=== PATIENT | male | born 1975 | race Hispanic/Latino ===

== ENCOUNTER 2019-01-30 12:15 | Emergency (ER) | payer MEDICAID, OTHER ==
[2019-01-30] MEDS ORDERED: FAMOTIDINE/PF 20 MG/2 ML VIAL IV ONE (12:40)
[2019-01-30] MEDS ORDERED: ONDANSETRON HCL 4 MG/2 ML VIAL ONE (12:40)
[2019-01-30 12:50] LABS: POTASSIUM 3.6 mmol/L (3.5-5.1)
[2019-01-30 12:53] LABS: BASOPHILS % (AUTO) 1.1 % (0.0-5.0); EOSINOPHILS % (AUTO) 1.3 % (0.0-8.0); HEMATOCRIT 49.1 % (42-54); LYMPHOCYTES % (AUTO) 17.2 % (21.0-51.0); MEAN CORPUSCULAR HEMOGLOBIN 29.5 pg (27.0-33.0); MEAN CORPUSCULAR HGB CONC 33.7 g/dL (32.0-36.0); MEAN CORPUSCULAR VOLUME 87.3 fL (79-99); MONOCYTES % (AUTO) 7.1 % (3.0-13.0); NEUTROPHILS % (AUTO) 73.3 % (40.0-77.0); PLATELET COUNT (AUTO) 291 K/uL (130-400); RED BLOOD CELL COUNT(AUTO) 5.62 MIL/uL (4.50-6.20); WHITE BLOOD COUNT (AUTO) 9.9 K/uL (4.8-10.8)
[2019-01-30 12:55] LABS: ALBUMIN 4.3 g/dL (3.5-5.0)
[2019-01-30 13:55] LABS: APPEARANCE,URINE Clear (CLEAR); BILIRUBIN,URINE Negative (NEGATIVE); COLOR,URINE Dark Yellow (YELLOW); GLUCOSE, URINE (UA) Negative (NEGATIVE); KETONES,URINE >=80 mg/dL (NEGATIVE); LEUKOCYTE ESTERASE ,URINE Trace (NEGATIVE); NITRATE,URINE Negative (NEGATIVE); OCCULT BLOOD,URINE Negative (NEGATIVE); PH,URINE >=9.0 (5.0-8.0); PROTEIN,URINE POS 2+ mg/dL (NEGATIVE)
[2019-01-30 14:04] LABS: AMPHET/METH SCREEN,URINE NEGATIVE (NEGATIVE); BARBITURATE SCREEN, URINE NEGATIVE (NEGATIVE); BENZODIAZEPINES SCREEN,URINE NEGATIVE (NEGATIVE); CANNABINOID SCREEN,URINE NEGATIVE (NEGATIVE); COCAINE SCREEN,URINE NEGATIVE (NEGATIVE); OPIATE SCREEN,URINE NEGATIVE (NEGATIVE); PHENCYCLIDINE SCREEN,URINE NEGATIVE (NEGATIVE)
[2019-01-30 14:09] LABS: BACTERIA,URINE Rare /HPF (None Seen); MUCUS,URINE Many LPF (None Seen); RBC,URINE None Seen /HPF (0-1); WBC,URINE 0-1 /HPF (0-1)
== END 2019-01-30 14:19 | disposition home or self-care (01) ==
LOC: EDH 12:15
DX: K29.70 Gastritis, unspecified, without bleeding (principal); K21.9 Gastro-esophageal reflux disease without esophagitis
CPT/HCPCS: 36415; 80053; 80305; 81001; 83690; 85025; 96361; 96374; 96375; 99284; J2405; J3490

== ENCOUNTER 2019-02-25 09:55 | Emergency (ER) | payer OTHER ==
[2019-02-25] MEDS ORDERED: SODIUM CHLORIDE 0.9% 1000ML 1,000 ML IV ONE (10:31)
[2019-02-25] MEDS ORDERED: ONDANSETRON HCL 4 MG/2 ML VIAL ONE ×2 (10:33→10:40)
[2019-02-25 10:40] LABS: BASOPHILS % (AUTO) 0.8 % (0.0-5.0); EOSINOPHILS % (AUTO) 2.6 % (0.0-8.0); HEMATOCRIT 38.4 % (42-54); LYMPHOCYTES % (AUTO) 6.6 % (21.0-51.0); MEAN CORPUSCULAR HEMOGLOBIN 28.9 pg (27.0-33.0); MEAN CORPUSCULAR HGB CONC 33.5 g/dL (32.0-36.0); MEAN CORPUSCULAR VOLUME 86.1 fL (79-99); MONOCYTES % (AUTO) 6.8 % (3.0-13.0); NEUTROPHILS % (AUTO) 83.2 % (40.0-77.0); PLATELET COUNT (AUTO) 311 K/uL (130-400); RED BLOOD CELL COUNT(AUTO) 4.45 MIL/uL (4.50-6.20); RED CELL DISTRIBUTION WIDTH 12.6 % (11.0-15.5); WHITE BLOOD COUNT (AUTO) 9.5 K/uL (4.8-10.8)
[2019-02-25] MEDS ORDERED: KETOROLAC TROMETHAMINE 30MG/ML ONE (10:41)
[2019-02-25 10:50] LABS: APPEARANCE,URINE Clear (CLEAR); BILIRUBIN,URINE Small (NEGATIVE); COLOR,URINE Dark Yellow (YELLOW); GLUCOSE, URINE (UA) Negative (NEGATIVE); KETONES,URINE Trace mg/dL (NEGATIVE); LEUKOCYTE ESTERASE ,URINE Trace (NEGATIVE); NITRATE,URINE Negative (NEGATIVE); OCCULT BLOOD,URINE Negative (NEGATIVE); PROTEIN,URINE Trace mg/dL (NEGATIVE)
[2019-02-25 10:51] LABS: CREATININE 0.9 mg/dL (0.5-1.5); POTASSIUM 3.9 mmol/L (3.5-5.1)
[2019-02-25 10:56] LABS: BILIRUBIN,DIRECT 0.2 mg/dL (0.0-0.3); BILIRUBIN,TOTAL 0.8 mg/dL (0.2-1.0); TOTAL PROTEIN, SERUM 7.3 g/dL (6.0-8.3)
[2019-02-25 10:58] LABS: AMPHET/METH SCREEN,URINE NEGATIVE (NEGATIVE); BARBITURATE SCREEN, URINE NEGATIVE (NEGATIVE); BENZODIAZEPINES SCREEN,URINE NEGATIVE (NEGATIVE); CANNABINOID SCREEN,URINE NEGATIVE (NEGATIVE); COCAINE SCREEN,URINE NEGATIVE (NEGATIVE); OPIATE SCREEN,URINE POSITIVE (NEGATIVE); PHENCYCLIDINE SCREEN,URINE NEGATIVE (NEGATIVE)
[2019-02-25 11:13] LABS: BACTERIA,URINE Rare /HPF (None Seen); MUCUS,URINE Rare LPF (None Seen); RBC,URINE 0-1 /HPF (0-1); SQUAMOUS EPITHELIAL CELL,UR Rare /HPF (0-2); WBC,URINE 0-1 /HPF (0-1)
[2019-02-25 11:51] LABS: B-TYPE NATRIURETIC PEPTIDE 24 pg/mL (0-100)
== END 2019-02-25 14:05 | disposition home or self-care (01) ==
LOC: EDH 09:55
DX: E86.0 Dehydration (principal); R53.1 Weakness; Z85.00 Personal history of malignant neoplasm of unspecified digestive organ; Z90.49 Acquired absence of other specified parts of digestive tract
CPT/HCPCS: 36415; 80048; 80076; 80305; 81001; 82550; 83690; 83880; 85025; 93005; 96361; 96374; 99285; J1885; J2405 ×2; J7030

== ENCOUNTER 2019-03-14 05:40 | Day surgery (SDC) | payer OTHER ==
[2019-03-12 15:30] VITALS: BP 116/70
[2019-03-12 15:47] LABS: EOSINOPHILS % (AUTO) 6.1 % (0.0-8.0); HEMATOCRIT 41.7 % (42-54); LYMPHOCYTES % (AUTO) 17.4 % (21.0-51.0); MEAN CORPUSCULAR HEMOGLOBIN 28.9 pg (27.0-33.0); MEAN CORPUSCULAR HGB CONC 33.3 g/dL (32.0-36.0); MEAN CORPUSCULAR VOLUME 86.8 fL (79-99); NEUTROPHILS % (AUTO) 68.5 % (40.0-77.0); PLATELET COUNT (AUTO) 322 K/uL (130-400); WHITE BLOOD COUNT (AUTO) 9.7 K/uL (4.8-10.8)
[~2019-03-14] VITALS: Ht 170.2 cm; Wt 79.0 kg
[2019-03-14] VITALS (14 sets, daily range): BP systolic 109–128; BP diastolic 67–78
[~2019-03-14 05:40] MED LIST: LACTATED RINGERS 1000ML 1,000 ML IV ONE
[2019-03-14] MEDS: CEFAZOLIN SODIUM 1 GM VIAL IVP SCH ×2 (06:00→06:33)
[2019-03-14] MEDS ORDERED: PROPOFOL 10 MG/ML 20ML VIAL IV ONE (06:12)
[2019-03-14] MEDS ORDERED: LIDOCAINE PF 2% 5ML ABBOJECT ONE (06:12)
[2019-03-14] MEDS ORDERED: MIDAZOLAM HCL 1 MG/ML 2ML VIAL ONE (06:12)
[2019-03-14] MEDS ORDERED: FENTANYL CITRATE PF 50 MCG/1 ML 2ML VIAL ONE (06:13)
[2019-03-14] MEDS ORDERED: BUPIVACAINE/PF 0.25% 30ML VIAL IJ ONE (06:21)
[2019-03-14] MEDS ORDERED: KETOROLAC TROMETHAMINE 30MG/ML ONE (06:51)
[2019-03-14] MEDS ORDERED: EPHEDRINE SULFATE 50 MG/ML AMPULE ONE (06:53)
--- NOTE | 2019-03-14 08:03 | NUR ---
RECEIVE PT RECEIVED FROM PACU VIA STRETCHER AWAKE ALERT ORIENTED X3. PT STABLE. NOT IN ANY APPARENT DISTRESS. PORT A CATH SITE SOFT, NO SWELLING NO REDNESS NOTED, DRESSING DRY AND INTACT, NO OOZING NO HEMATOMA NOTE. KEPT HOB ELEVATED. WAITING ON CXR RESULTS. CALL [facility] WITHIN REACH, WILL CALL FOR TO COME IN TO ROOM.
--- NOTE | 2019-03-14 08:55 | NUR ---
DISCHARGE PT DISCHARGED VIA WHEELCHAIR WITH . PT STABLE. NO COMPLAINTS MADE. PORT INCISION SITE TO LEFT CHEST REMAINS ASYMPTOMATIC, NO SWELLING NO REDNESS NOTED, DRESSING DRY AND INTACT, NO OOZING NO HEMATOMA NOTED. DISCHARGE INSTRUCTIONS GIVEN TO AND PT, VERBALIZED UNDERSTANDING. OFFERED ORAL FLUIDS (WATER), PT HESITANT WITH THE KIND OF WATER FILTRATION, WILL DRINK AT HOME.
== END 2019-03-14 08:55 | disposition home or self-care (01) ==
LOC: DAH 05:40
PROVIDERS: ATTEND Surgery
DX: Z45.2 Encounter for adjustment and management of vascular access device (principal); C78.89 Secondary malignant neoplasm of other digestive organs; C80.1 Malignant (primary) neoplasm, unspecified; I25.10 Atherosclerotic heart disease of native coronary artery without angina pectoris; Z90.3 Acquired absence of stomach [part of]; Z87.891 Personal history of nicotine dependence; Z83.3 Family history of diabetes mellitus; Z80.3 Family history of malignant neoplasm of breast; Z80.0 Family history of malignant neoplasm of digestive organs; K86.81 Exocrine pancreatic insufficiency
CPT/HCPCS: 36415; 36561; 71045; 77001; 85025; A4606; A4930; A6206; C1788; G0168; J0690; J1644; J1885; J2001; J2250; J2704; J3010; J3490 ×2; J7120; 77002

== ENCOUNTER 2019-08-31 15:27 | Inpatient (IN) | payer OTHER ==
[~2019-08-31] VITALS: Ht 170.2 cm; Wt 84.1 kg
[2019-08-31] MEDS ORDERED: ONDANSETRON HCL 4 MG/2 ML VIAL ONE (16:05)
[2019-08-31 16:27] LABS: BASOPHILS % (AUTO) 0.7 % (0.0-5.0); EOSINOPHILS % (AUTO) 4.4 % (0.0-8.0); HEMATOCRIT 41.8 % (42-54); LYMPHOCYTES % (AUTO) 15.5 % (21.0-51.0); MEAN CORPUSCULAR VOLUME 88.3 fL (79-99); MONOCYTES % (AUTO) 8.3 % (3.0-13.0); NEUTROPHILS % (AUTO) 71.1 % (40.0-77.0); PLATELET COUNT (AUTO) 273 K/uL (130-400); RED BLOOD CELL COUNT(AUTO) 4.74 MIL/uL (4.50-6.20); RED CELL DISTRIBUTION WIDTH 12.1 % (11.0-15.5); WHITE BLOOD COUNT (AUTO) 6.5 K/uL (4.8-10.8)
[2019-08-31 16:45] LABS: INR 0.99 (0.85-1.15); PARTIAL THROMBOPLASTIN TIME 30.5 SEC (26.3-35.5); PROTHROMBIN TIME 10.4 SEC (9.6-11.6)
[2019-08-31 16:47] LABS: CREATININE 0.8 mg/dL (0.5-1.5); POTASSIUM 3.5 mmol/L (3.5-5.1)
[2019-08-31 16:53] LABS: ALBUMIN 3.9 g/dL (3.5-5.0); BILIRUBIN,TOTAL 0.6 mg/dL (0.2-1.0); TOTAL PROTEIN, SERUM 7.4 g/dL (6.0-8.3)
[2019-08-31] MEDS ORDERED: KETOROLAC TROMETHAMINE 30MG/ML ONE (17:04)
[2019-08-31] MEDS ORDERED: MAGNESIUM CITRATE 296 ML SOLUTION ONE (17:43)
[2019-08-31] MEDS ORDERED: ZOSYN 3.375GM+NS 50ML 50 ML IV ONE (17:43)
[2019-08-31 17:51] LABS: APPEARANCE,URINE Clear (CLEAR); BILIRUBIN,URINE Negative (NEGATIVE); COLOR,URINE Yellow (YELLOW); GLUCOSE, URINE (UA) Negative (NEGATIVE); KETONES,URINE 40 mg/dL (NEGATIVE); LEUKOCYTE ESTERASE ,URINE Negative (NEGATIVE); NITRATE,URINE Negative (NEGATIVE); OCCULT BLOOD,URINE Negative (NEGATIVE); PH,URINE 7.5 (5.0-8.0); PROTEIN,URINE Negative (NEGATIVE)
[2019-08-31] MEDS: SODIUM CHLORIDE 0.9% 1000ML 1,000 ML IV SCH (18:29)
[2019-08-31] MEDS ORDERED: LACTULOSE 20 GM/30 ML UDCUP PO PRN (18:30)
[2019-08-31] MEDS ORDERED: ACETAMINOPHEN 325 MG TAB PO PRN ×2 (18:30)
[2019-08-31] MEDS ORDERED: ONDANSETRON HCL 4 MG/2 ML VIAL IV PRN (18:30)
[2019-08-31] MEDS ORDERED: SODIUM CHLORIDE 0.9% 1000ML 1,000 ML IV ONE (19:50)
[2019-08-31] MEDS ORDERED: KETOROLAC TROMETHAMINE 15MG/ML ONE (20:07)
[2019-08-31] MEDS ORDERED: FAMOTIDINE/PF 20 MG/2 ML VIAL IV ONE (20:07)
[2019-08-31] MEDS: FAMOTIDINE/PF 20 MG/2 ML VIAL IV SCH (21:00)
[2019-08-31] MEDS: ZOSYN 3.375GM+NS 50ML 50 ML IV SCH (21:00)
[2019-08-31 21:20] VITALS: BP 155/98
--- NOTE | 2019-08-31 21:30 | NUR ---
ADMIT PT ADMITTED TO ROOM 313, AAOX3. DENIES ANY PAINS NOR ABDOMINAL DISCOMFORT AT THIS TIME. STILL NO BM BUT + BOWEL SOUNDS AND PASSAGE OF GAS. ADMISSION CARE DONE. ADMISSION DATA BASE COMPLETED. ORIENTED TO ROOM AND UNIT. PLACED NPO, INSTRUCTED PT AND VERBALIZES UNDERSTANDING. IN FOR MORE CARE AND MANAGEMENT. Addendum: 08/31/19 at 2236 by JERAD ALFONSO RN RN Amended: Links added.
[2019-08-31] MEDS ORDERED: TRAM50TA4 PO (21:35)
[2019-09-01] VITALS: BP 142/63
--- NOTE | 2019-09-01 01:40 | NUR ---
ROUNDS PT RESTING WELL, FAIRLY ASLEEP WITH RESPIRATIONS EVEN AND UNLABORED. NO NOTED DISTRESS. KEPT UNDISTURBED FOR NOW. WILL MONITOR PT. FAMILY ASLEEP AT BEDSIDE.
[2019-09-01] MEDS: SODIUM CHLORIDE 0.9% 1000ML 1,000 ML IV SCH ×4 (02:07→21:39)
[2019-09-01 04:00] VITALS: BP 149/99
[2019-09-01] MEDS: ZOSYN 3.375GM+NS 50ML 50 ML IV SCH ×3 (04:08→21:39)
[2019-09-01 05:29] LABS: BASOPHILS % (AUTO) 0.6 % (0.0-5.0); EOSINOPHILS % (AUTO) 2.3 % (0.0-8.0); HEMATOCRIT 40.6 % (42-54); LYMPHOCYTES % (AUTO) 5.6 % (21.0-51.0); MEAN CORPUSCULAR HEMOGLOBIN 30.3 pg (27.0-33.0); MEAN CORPUSCULAR HGB CONC 34.3 g/dL (32.0-36.0); MEAN CORPUSCULAR VOLUME 88.5 fL (79-99); MONOCYTES % (AUTO) 9.7 % (3.0-13.0); NEUTROPHILS % (AUTO) 81.8 % (40.0-77.0); PLATELET COUNT (AUTO) 209 K/uL (130-400); RED BLOOD CELL COUNT(AUTO) 4.59 MIL/uL (4.50-6.20); RED CELL DISTRIBUTION WIDTH 12.4 % (11.0-15.5); WHITE BLOOD COUNT (AUTO) 7.1 K/uL (4.8-10.8)
[2019-09-01 05:50] LABS: CREATININE 0.9 mg/dL (0.5-1.5); POTASSIUM 3.7 mmol/L (3.5-5.1)
--- NOTE | 2019-09-01 06:00 | NUR ---
ROUNDS PT STILL FAIRLY ASLEEP. NO DISTRESS NOTED. KEPT UNDISTURBED FOR NOW. KEPT RESTED AND COMFORTABLE. FOR MORE CARE.
[2019-09-01 08:00] VITALS: BP 147/93
[2019-09-01] MEDS: FAMOTIDINE/PF 20 MG/2 ML VIAL IV SCH ×2 (08:49→21:39)
[2019-09-01] MEDS: ENOXAPARIN SODIUM 40 MG/0.4 ML SYRINGE SQ SCH (08:50)
[2019-09-01 11:00] VITALS: BP 144/91
[2019-09-01] MEDS: KETOROLAC TROMETHAMINE 15MG/ML IV PRN ×2 (11:57→21:39)
[2019-09-01 15:20] VITALS: BP 142/94
--- NOTE | 2019-09-01 17:22 | NUR ---
D/C PLAN CM spoke to pts spouse regarding d/c planning. Pt currently in shower. Spouse states pt is ind. with ADL's. Spouse can assist in care if needed. Denies having any DME at home. Plan to home. No needs verbalized or identified. CM to f/u. Addendum: 09/01/19 at 1723 by PEDRITO RHOADES CM Amended: Links added.
[2019-09-01 19:18] VITALS: BP 136/86
--- NOTE | 2019-09-01 21:59 | NUR ---
Called DR rivers pt concern that PA told him he's going to have surgery tonight.Result of RUQ sono relayed to him,he said pt can have Clear Liquid for now.No surgery indicated.
[2019-09-02] VITALS (7 sets, daily range): BP systolic 143–163; BP diastolic 80–94
[2019-09-02] MEDS: SODIUM CHLORIDE 0.9% 1000ML 1,000 ML IV SCH ×4 (02:29→21:32)
[2019-09-02] MEDS: ZOSYN 3.375GM+NS 50ML 50 ML IV SCH ×3 (04:48→21:25)
[2019-09-02] MEDS: KETOROLAC TROMETHAMINE 15MG/ML IV PRN (04:55)
[2019-09-02 05:20] LABS: BASOPHILS % (AUTO) 0.9 % (0.0-5.0); EOSINOPHILS % (AUTO) 4.3 % (0.0-8.0); HEMATOCRIT 38.2 % (42-54); LYMPHOCYTES % (AUTO) 17.7 % (21.0-51.0); MEAN CORPUSCULAR HEMOGLOBIN 29.8 pg (27.0-33.0); MEAN CORPUSCULAR HGB CONC 33.8 g/dL (32.0-36.0); MEAN CORPUSCULAR VOLUME 88.3 fL (79-99); NEUTROPHILS % (AUTO) 65.1 % (40.0-77.0); PLATELET COUNT (AUTO) 218 K/uL (130-400); RED BLOOD CELL COUNT(AUTO) 4.33 MIL/uL (4.50-6.20); RED CELL DISTRIBUTION WIDTH 12.2 % (11.0-15.5); WHITE BLOOD COUNT (AUTO) 5.4 K/uL (4.8-10.8)
[2019-09-02 05:42] LABS: ALBUMIN 3.2 g/dL (3.5-5.0); BILIRUBIN,TOTAL 0.6 mg/dL (0.2-1.0); CREATININE 0.9 mg/dL (0.5-1.5); TOTAL PROTEIN, SERUM 6.4 g/dL (6.0-8.3)
[2019-09-02] MEDS: ENOXAPARIN SODIUM 40 MG/0.4 ML SYRINGE SQ SCH (09:42)
[2019-09-02] MEDS: FAMOTIDINE/PF 20 MG/2 ML VIAL IV SCH ×2 (09:42→21:25)
--- NOTE | 2019-09-02 11:30 | NUR ---
ONCOLOGY CONSULT. CALLED DR MARCIAL'S OFFICE. THEY WERE NOT AWARE OF THE CONSULT THAT WAS ORDERED SINCE YESTERDAY. ALL INFORMATION PROVIDED.
[2019-09-03] MEDS: KETOROLAC TROMETHAMINE 15MG/ML IV PRN (03:56)
[2019-09-03 04:00] VITALS: BP 152/79
[2019-09-03] MEDS: ZOSYN 3.375GM+NS 50ML 50 ML IV SCH (04:49)
[2019-09-03 05:30] LABS: BASOPHILS % (AUTO) 0.6 % (0.0-5.0); EOSINOPHILS % (AUTO) 4.9 % (0.0-8.0); HEMATOCRIT 38.5 % (42-54); LYMPHOCYTES % (AUTO) 19.3 % (21.0-51.0); MEAN CORPUSCULAR HEMOGLOBIN 30.4 pg (27.0-33.0); MEAN CORPUSCULAR HGB CONC 34.1 g/dL (32.0-36.0); MONOCYTES % (AUTO) 9.3 % (3.0-13.0); NEUTROPHILS % (AUTO) 65.9 % (40.0-77.0); NUCLEATED RED BLOOD CELLS 0.1 % (0.0-0.19); PLATELET COUNT (AUTO) 195 K/uL (130-400); RED BLOOD CELL COUNT(AUTO) 4.33 MIL/uL (4.50-6.20); RED CELL DISTRIBUTION WIDTH 12.4 % (11.0-15.5); WHITE BLOOD COUNT (AUTO) 5.1 K/uL (4.8-10.8)
[2019-09-03 05:44] LABS: ALBUMIN 3.2 g/dL (3.5-5.0); BILIRUBIN,TOTAL 0.7 mg/dL (0.2-1.0); CREATININE 0.9 mg/dL (0.5-1.5); POTASSIUM 3.9 mmol/L (3.5-5.1); TOTAL PROTEIN, SERUM 6.5 g/dL (6.0-8.3)
[2019-09-03 08:46] VITALS: BP 141/91
[2019-09-03] MEDS: FAMOTIDINE/PF 20 MG/2 ML VIAL IV SCH (08:56)
[2019-09-03] MEDS: ENOXAPARIN SODIUM 40 MG/0.4 ML SYRINGE SQ SCH (08:57)
[2019-09-03] MEDS: SODIUM CHLORIDE 0.9% 1000ML 1,000 ML IV SCH (10:30)
[2019-09-03 12:13] VITALS: BP 135/80
== END 2019-09-03 14:15 | disposition home or self-care (01) | DRG 393 ==
LOC: EDH 15:27 → EDHIP 18:29 → 3CH 20:18
PROVIDERS: ADMIT Internal Medicine; ATTEND Internal Medicine
DX: K35.80 Unspecified acute appendicitis (principal); K85.90 Acute pancreatitis without necrosis or infection, unspecified; C16.9 Malignant neoplasm of stomach, unspecified; K59.09 Other constipation; Z80.9 Family history of malignant neoplasm, unspecified; Z83.3 Family history of diabetes mellitus; Z87.891 Personal history of nicotine dependence; Z90.3 Acquired absence of stomach [part of]
CPT/HCPCS: 36415; 71045; 74176; 76705; 80048; 80053; 81003; 82150; 82550; 83690; 84484; 85025; 85610; 85730; 93005; G0378; J1650; J1885; J2405; J2543; J3490; J7030

== ENCOUNTER → 2019-09-10 | Outpatient (CLI) | payer OTHER ==
[~2019-09-10] MED LIST changes: -LACTATED RINGERS 1000ML 1,000 ML IV ONE; +TRAM50TA4 PO
[2019-09-10 15:05] LABS: ALBUMIN 4.2 g/dL (3.5-5.0); BILIRUBIN,TOTAL 0.9 mg/dL (0.2-1.0); CREATININE 0.9 mg/dL (0.5-1.5); POTASSIUM 4.3 mmol/L (3.5-5.1); TOTAL PROTEIN, SERUM 7.8 g/dL (6.0-8.3)
== END | disposition home or self-care (01) ==
LOC: LAB 14:12
PROVIDERS: ATTEND Family Medicine
DX: C16.9 Malignant neoplasm of stomach, unspecified (principal); K85.90 Acute pancreatitis without necrosis or infection, unspecified
CPT/HCPCS: 36415; 80053; 82150; 83690

== ENCOUNTER 2019-09-18 16:20 | Inpatient (IN) | payer OTHER ==
[~2019-09-18] VITALS: Ht 170.2 cm; Wt 84.2 kg
[2019-09-18 17:02] LABS: BASOPHILS % (AUTO) 0.4 % (0.0-5.0); EOSINOPHILS % (AUTO) 5.3 % (0.0-8.0); HEMATOCRIT 42.3 % (42-54); LYMPHOCYTES % (AUTO) 12.8 % (21.0-51.0); MEAN CORPUSCULAR HEMOGLOBIN 28.3 pg (27.0-33.0); MEAN CORPUSCULAR HGB CONC 32.9 g/dL (32.0-36.0); MEAN CORPUSCULAR VOLUME 86.2 fL (79-99); MONOCYTES % (AUTO) 10.9 % (3.0-13.0); NEUTROPHILS % (AUTO) 70.4 % (40.0-77.0); PLATELET COUNT (AUTO) 186 K/uL (130-400); RED BLOOD CELL COUNT(AUTO) 4.91 MIL/uL (4.50-6.20); RED CELL DISTRIBUTION WIDTH 11.9 % (11.0-15.5); WHITE BLOOD COUNT (AUTO) 4.7 K/uL (4.8-10.8)
[2019-09-18 17:14] LABS: CREATININE 0.8 mg/dL (0.5-1.5); POTASSIUM 4.3 mmol/L (3.5-5.1)
[2019-09-18] MEDS ORDERED: MORPHINE SULFATE 4 MG/1ML SYG ONE (17:16)
[2019-09-18] MEDS ORDERED: ONDANSETRON HCL 4 MG/2 ML VIAL ONE (17:16)
[2019-09-18 17:17] LABS: MAGNESIUM 1.9 mg/dL (1.80-2.40); PHOSPHORUS 3.2 mg/dL (2.5-4.9)
[2019-09-18] MEDS ORDERED: SODIUM CHLORIDE 0.9% 1000ML 1,000 ML IV ONE (17:17)
[2019-09-18] MEDS ORDERED: IOHEXOL 350 MG/ML 100ML INFUS..BTL IV ONE (17:18)
[2019-09-18 17:20] LABS: BILIRUBIN,TOTAL 4.8 mg/dL (0.2-1.0); TOTAL PROTEIN, SERUM 7.4 g/dL (6.0-8.3)
[2019-09-18] MEDS ORDERED: ACETAMINOPHEN 325 MG TAB PO PRN (20:30)
[2019-09-18 22:55] VITALS: BP 149/75
[2019-09-18] MEDS: FAMOTIDINE/PF 20 MG/2 ML VIAL IV SCH (23:48)
[2019-09-18] MEDS: SODIUM CHLORIDE 0.9% 1000ML 1,000 ML IV SCH (23:59)
[2019-09-18] MEDS: ONDANSETRON HCL 4 MG/2 ML VIAL IV PRN (23:59)
[2019-09-19] MEDS: MORPHINE SULFATE 4 MG/1ML SYG IV PRN ×4 (00:04→19:49)
[2019-09-19 03:25] VITALS: BP 146/92
[2019-09-19 05:59] LABS: BASOPHILS % (AUTO) 0.7 % (0.0-5.0); EOSINOPHILS % (AUTO) 4.6 % (0.0-8.0); HEMATOCRIT 39.7 % (42-54); LYMPHOCYTES % (AUTO) 13.3 % (21.0-51.0); MEAN CORPUSCULAR HEMOGLOBIN 28.7 pg (27.0-33.0); MEAN CORPUSCULAR VOLUME 87.1 fL (79-99); MONOCYTES % (AUTO) 10.5 % (3.0-13.0); NEUTROPHILS % (AUTO) 70.5 % (40.0-77.0); PLATELET COUNT (AUTO) 156 K/uL (130-400); RED BLOOD CELL COUNT(AUTO) 4.56 MIL/uL (4.50-6.20); RED CELL DISTRIBUTION WIDTH 11.9 % (11.0-15.5); WHITE BLOOD COUNT (AUTO) 4.6 K/uL (4.8-10.8)
[2019-09-19 06:17] LABS: CREATININE 0.8 mg/dL (0.5-1.5); POTASSIUM 3.9 mmol/L (3.5-5.1)
[2019-09-19] MEDS: ONDANSETRON HCL 4 MG/2 ML VIAL IV PRN ×3 (06:20→20:22)
[2019-09-19] MEDS: SODIUM CHLORIDE 0.9% 1000ML 1,000 ML IV SCH (07:11)
[2019-09-19 08:00] VITALS: BP 155/91
[2019-09-19] MEDS: LACTATED RINGERS 1000ML 1,000 ML IV SCH ×2 (09:30→22:55)
[2019-09-19] MEDS ORDERED: GADODIAMIDE 10 MMOL/20 ML VIAL IV ONE (09:50)
[2019-09-19] MEDS ORDERED: LACTATED RINGERS 1000ML 1,000 ML IV ONE (10:03)
[2019-09-19] MEDS: FAMOTIDINE/PF 20 MG/2 ML VIAL IV SCH ×2 (11:59→20:22)
[2019-09-19 12:00] VITALS: BP 162/82
[2019-09-19] MEDS: ENOXAPARIN SODIUM 40 MG/0.4 ML SYRINGE SQ SCH (12:00)
[2019-09-19 16:00] VITALS: BP 153/77
--- NOTE | 2019-09-19 16:30 | NUR ---
DCP CM met with pt discussed dc plans. Pt is indpendent prior to admission, lives at home with spouse. Denies any equipments/services. Feels safe to go back home, spouse able to assist with transportation and needs as necessary. DC plan to home once stable. CM to cont to follow up. Addendum: 09/19/19 at 1631 by HEAVENLY BABCOCK LVN CM Amended: Links added.
--- NOTE | 2019-09-19 18:41 | NUR ---
I have paged dr Ayers to inform him of MRCP findings pending all back
[2019-09-19 19:20] VITALS: BP 168/92
--- NOTE | 2019-09-19 19:30 | NUR ---
MD VISIT Dr. Cardenas here to see pt for consult, pt seen and examined, concerns addressed. Talked to pt and about plan of care. MD stated that he doesn't need to do any surgery, to talk to GI about a stent placement. Also called and talked to Dr. Parks over the phone to come see the pt in the am, Oncologist added to the consult list.
[2019-09-19 23:28] VITALS: BP 168/90
[2019-09-20] MEDS: LACTATED RINGERS 1000ML 1,000 ML IV SCH ×2 (01:15→04:49)
[2019-09-20] MEDS: MORPHINE SULFATE 4 MG/1ML SYG IV PRN ×4 (01:20→22:09)
[2019-09-20 03:20] VITALS: BP 158/84
[2019-09-20] MEDS: ONDANSETRON HCL 4 MG/2 ML VIAL IV PRN ×3 (04:46→14:54)
[2019-09-20 05:18] LABS: HEMATOCRIT 38.7 % (42-54); MEAN CORPUSCULAR HEMOGLOBIN 29.1 pg (27.0-33.0); MEAN CORPUSCULAR HGB CONC 33.6 g/dL (32.0-36.0); MEAN CORPUSCULAR VOLUME 86.8 fL (79-99); PLATELET COUNT (AUTO) 162 K/uL (130-400); RED BLOOD CELL COUNT(AUTO) 4.46 MIL/uL (4.50-6.20); RED CELL DISTRIBUTION WIDTH 11.9 % (11.0-15.5); WHITE BLOOD COUNT (AUTO) 4.6 K/uL (4.8-10.8)
[2019-09-20 05:50] LABS: ALBUMIN 3.4 g/dL (3.5-5.0); BILIRUBIN,DIRECT 3.3 mg/dL (0.0-0.3); BILIRUBIN,TOTAL 4.6 mg/dL (0.2-1.0); CREATININE 0.7 mg/dL (0.5-1.5); MAGNESIUM 1.5 mg/dL (1.80-2.40); PHOSPHORUS 3.5 mg/dL (2.5-4.9); POTASSIUM 3.9 mmol/L (3.5-5.1); TOTAL PROTEIN, SERUM 6.6 g/dL (6.0-8.3)
[2019-09-20 08:47] VITALS: BP 156/85
[2019-09-20] MEDS ORDERED: BISACODYL 10 MG SUPP.RECT RC SCH (09:15)
[2019-09-20] MEDS: FAMOTIDINE/PF 20 MG/2 ML VIAL IV SCH ×2 (09:17→22:04)
[2019-09-20] MEDS: ENOXAPARIN SODIUM 40 MG/0.4 ML SYRINGE SQ SCH (09:18)
[2019-09-20] MEDS: LACTULOSE 20 GM/30 ML UDCUP PO PRN ×2 (09:22→22:20)
[2019-09-20 12:49] VITALS: BP 167/97
[2019-09-20 16:23] VITALS: BP 166/99
[2019-09-20] MEDS: ZOSYN 3.375GM+NS 50ML 50 ML IV SCH (17:50)
[2019-09-20 19:56] VITALS: BP 145/87
[2019-09-20] MEDS: METRONIDAZOLE 500MG/100ML BAG 100 ML IV SCH (22:04)
[2019-09-20 23:29] VITALS: BP 154/92
[2019-09-21] MEDS: ZOSYN 3.375GM+NS 50ML 50 ML IV SCH ×4 (00:23→23:29)
[2019-09-21] MEDS: LACTATED RINGERS 1000ML 1,000 ML IV SCH ×5 (00:31→09:58)
[2019-09-21 03:08] VITALS: BP 122/74
[2019-09-21] MEDS: MORPHINE SULFATE 4 MG/1ML SYG IV PRN ×3 (04:50→23:29)
[2019-09-21 05:44] LABS: BASOPHILS % (AUTO) 0.4 % (0.0-5.0); EOSINOPHILS % (AUTO) 4.9 % (0.0-8.0); HEMATOCRIT 39.1 % (42-54); LYMPHOCYTES % (AUTO) 14.5 % (21.0-51.0); MEAN CORPUSCULAR HEMOGLOBIN 29.2 pg (27.0-33.0); MEAN CORPUSCULAR HGB CONC 33.8 g/dL (32.0-36.0); MEAN CORPUSCULAR VOLUME 86.5 fL (79-99); MONOCYTES % (AUTO) 11.9 % (3.0-13.0); NEUTROPHILS % (AUTO) 68.1 % (40.0-77.0); PLATELET COUNT (AUTO) 174 K/uL (130-400); RED BLOOD CELL COUNT(AUTO) 4.52 MIL/uL (4.50-6.20); RED CELL DISTRIBUTION WIDTH 11.9 % (11.0-15.5); WHITE BLOOD COUNT (AUTO) 4.7 K/uL (4.8-10.8)
[2019-09-21 06:09] LABS: ALBUMIN 3.4 g/dL (3.5-5.0); BILIRUBIN,TOTAL 5.3 mg/dL (0.2-1.0); CREATININE 0.8 mg/dL (0.5-1.5); POTASSIUM 3.5 mmol/L (3.5-5.1); TOTAL PROTEIN, SERUM 6.6 g/dL (6.0-8.3)
[2019-09-21] MEDS: METRONIDAZOLE 500MG/100ML BAG 100 ML IV SCH ×3 (06:45→21:40)
[2019-09-21] MEDS: LACTULOSE 20 GM/30 ML UDCUP PO PRN (06:55)
[2019-09-21 08:11] VITALS: BP 154/90
[2019-09-21] MEDS: FAMOTIDINE/PF 20 MG/2 ML VIAL IV SCH ×2 (09:54→21:40)
[2019-09-21] MEDS: ENOXAPARIN SODIUM 40 MG/0.4 ML SYRINGE SQ SCH (09:58)
[2019-09-21 11:00] VITALS: BP 147/91
[2019-09-21 16:27] VITALS: BP 141/83
[2019-09-21 19:52] VITALS: BP 141/86
[2019-09-22] VITALS: BP 151/91
[2019-09-22] MEDS: LACTATED RINGERS 1000ML 1,000 ML IV SCH ×6 (01:52→20:57)
[2019-09-22 04:06] VITALS: BP 142/93
[2019-09-22] MEDS: METRONIDAZOLE 500MG/100ML BAG 100 ML IV SCH ×3 (05:30→20:57)
[2019-09-22 06:02] LABS: BASOPHILS % (AUTO) 0.7 % (0.0-5.0); EOSINOPHILS % (AUTO) 4.4 % (0.0-8.0); HEMATOCRIT 39.7 % (42-54); LYMPHOCYTES % (AUTO) 16.3 % (21.0-51.0); MEAN CORPUSCULAR HEMOGLOBIN 28.5 pg (27.0-33.0); MEAN CORPUSCULAR HGB CONC 32.7 g/dL (32.0-36.0); MEAN CORPUSCULAR VOLUME 87.1 fL (79-99); MONOCYTES % (AUTO) 10.7 % (3.0-13.0); NEUTROPHILS % (AUTO) 67.7 % (40.0-77.0); PLATELET COUNT (AUTO) 161 K/uL (130-400); RED BLOOD CELL COUNT(AUTO) 4.56 MIL/uL (4.50-6.20); RED CELL DISTRIBUTION WIDTH 11.9 % (11.0-15.5); WHITE BLOOD COUNT (AUTO) 4.3 K/uL (4.8-10.8)
[2019-09-22 06:21] LABS: ALBUMIN 3.3 g/dL (3.5-5.0); BILIRUBIN,TOTAL 5.9 mg/dL (0.2-1.0); CREATININE 0.8 mg/dL (0.5-1.5); POTASSIUM 3.5 mmol/L (3.5-5.1); TOTAL PROTEIN, SERUM 6.4 g/dL (6.0-8.3)
[2019-09-22] MEDS: ZOSYN 3.375GM+NS 50ML 50 ML IV SCH ×3 (07:45→22:31)
[2019-09-22 08:00] VITALS: BP 144/90
[2019-09-22] MEDS: MORPHINE SULFATE 4 MG/1ML SYG IV PRN ×3 (09:37→22:31)
[2019-09-22] MEDS: FAMOTIDINE/PF 20 MG/2 ML VIAL IV SCH ×2 (09:40→20:57)
[2019-09-22] MEDS: ENOXAPARIN SODIUM 40 MG/0.4 ML SYRINGE SQ SCH (09:41)
[2019-09-22] MEDS: LACTULOSE 20 GM/30 ML UDCUP PO PRN ×2 (09:46→20:56)
[2019-09-22 11:00] VITALS: BP 148/93
[2019-09-22 16:00] VITALS: BP 149/97
[2019-09-22 20:00] VITALS: BP 157/90
[2019-09-23 00:02] VITALS: BP 151/87
[2019-09-23] MEDS: MORPHINE SULFATE 4 MG/1ML SYG IV PRN ×3 (02:46→16:30)
[2019-09-23] MEDS: LACTATED RINGERS 1000ML 1,000 ML IV SCH ×3 (02:46→20:13)
[2019-09-23 04:00] VITALS: BP 147/83
[2019-09-23 05:34] LABS: BASOPHILS % (AUTO) 0.8 % (0.0-5.0); EOSINOPHILS % (AUTO) 4.4 % (0.0-8.0); HEMATOCRIT 37.4 % (42-54); LYMPHOCYTES % (AUTO) 16.1 % (21.0-51.0); MEAN CORPUSCULAR HEMOGLOBIN 28.9 pg (27.0-33.0); MEAN CORPUSCULAR HGB CONC 33.7 g/dL (32.0-36.0); MEAN CORPUSCULAR VOLUME 85.8 fL (79-99); MONOCYTES % (AUTO) 10.4 % (3.0-13.0); PLATELET COUNT (AUTO) 165 K/uL (130-400); RED BLOOD CELL COUNT(AUTO) 4.36 MIL/uL (4.50-6.20); RED CELL DISTRIBUTION WIDTH 11.9 % (11.0-15.5); WHITE BLOOD COUNT (AUTO) 3.9 K/uL (4.8-10.8)
[2019-09-23 05:55] LABS: ALBUMIN 3.2 g/dL (3.5-5.0); BILIRUBIN,TOTAL 6.2 mg/dL (0.2-1.0); CREATININE 0.8 mg/dL (0.5-1.5); POTASSIUM 3.7 mmol/L (3.5-5.1); TOTAL PROTEIN, SERUM 6.1 g/dL (6.0-8.3)
[2019-09-23] MEDS: METRONIDAZOLE 500MG/100ML BAG 100 ML IV SCH ×3 (05:58→20:13)
--- NOTE | 2019-09-23 08:00 | NUR ---
AM SHIFT ASSESSMENT; unhappy, states no one has been able to tell him what is really going on.
[2019-09-23 08:32] VITALS: BP 148/93
[2019-09-23] MEDS: FAMOTIDINE/PF 20 MG/2 ML VIAL IV SCH ×2 (08:57→20:13)
[2019-09-23] MEDS: ZOSYN 3.375GM+NS 50ML 50 ML IV SCH ×3 (08:57→23:11)
[2019-09-23] MEDS: ENOXAPARIN SODIUM 40 MG/0.4 ML SYRINGE SQ SCH (08:59)
[2019-09-23] MEDS ORDERED: BISACODYL 10 MG SUPP.RECT RC PRN (09:30)
[2019-09-23 12:00] VITALS: BP 156/93
[2019-09-23 16:00] VITALS: BP 165/90
--- NOTE | 2019-09-23 17:00 | NUR ---
us of abd and mrcp has been ordered for tomorrow by dr. smith
--- NOTE | 2019-09-23 18:00 | NUR ---
dr. mcwilliams in to see pt. labs ordered for am
[2019-09-23 19:00] VITALS: BP 165/96
[2019-09-24] VITALS: BP 140/96
[2019-09-24] MEDS: MORPHINE SULFATE 4 MG/1ML SYG IV PRN ×4 (00:34→21:34)
[2019-09-24] MEDS: ZOSYN 3.375GM+NS 50ML 50 ML IV SCH ×3 (03:50→20:43)
[2019-09-24] MEDS: METRONIDAZOLE 500MG/100ML BAG 100 ML IV SCH ×3 (03:50→20:43)
[2019-09-24 04:00] VITALS: BP 145/88
[2019-09-24 05:21] LABS: BASOPHILS % (AUTO) 0.4 % (0.0-5.0); EOSINOPHILS % (AUTO) 2.9 % (0.0-8.0); HEMATOCRIT 41.2 % (42-54); LYMPHOCYTES % (AUTO) 12.2 % (21.0-51.0); MEAN CORPUSCULAR HEMOGLOBIN 28.5 pg (27.0-33.0); MEAN CORPUSCULAR VOLUME 86.2 fL (79-99); MONOCYTES % (AUTO) 11.1 % (3.0-13.0); PLATELET COUNT (AUTO) 168 K/uL (130-400); RED BLOOD CELL COUNT(AUTO) 4.78 MIL/uL (4.50-6.20); RED CELL DISTRIBUTION WIDTH 12.1 % (11.0-15.5); WHITE BLOOD COUNT (AUTO) 4.5 K/uL (4.8-10.8)
[2019-09-24 06:11] LABS: ALBUMIN 3.3 g/dL (3.5-5.0); BILIRUBIN,TOTAL 7.4 mg/dL (0.2-1.0); CREATININE 0.8 mg/dL (0.5-1.5); POTASSIUM 3.5 mmol/L (3.5-5.1); TOTAL PROTEIN, SERUM 6.5 g/dL (6.0-8.3)
--- NOTE | 2019-09-24 08:00 | NUR ---
AM SHIFT ASSESSMENT.
[2019-09-24 08:24] VITALS: BP 143/86
[2019-09-24] MEDS: FAMOTIDINE/PF 20 MG/2 ML VIAL IV SCH ×2 (09:41→20:43)
[2019-09-24] MEDS: ENOXAPARIN SODIUM 40 MG/0.4 ML SYRINGE SQ SCH (09:42)
--- NOTE | 2019-09-24 11:04 | NUR ---
RD NOTIFICATION Dx: Acute on Chronic Pancreatitis. Labs reviewed. Meds reviewed. Diet: NPO since admission. Pt with unintended weight loss- 7.6% weight loss change in approx. 1 month, with nutrition related physical signs of muscle and fat loss; indicating Mod-Severe Protein/ Calorie Malnutrition. Lipase remains elevated. RD recommends to Start TPN via PICC using Clinimix 5/15 at 83ml/hr Pending PCM education as per protocol Monitor CMP, Mg, Phosphorous levels Monitor daily weight RD will continue to monitor and follow up, thank you. Addendum: 09/24/19 at [address] Amended: Links added.
[2019-09-24] MEDS: LACTATED RINGERS 1000ML 1,000 ML IV SCH ×3 (11:08→20:43)
--- NOTE | 2019-09-24 12:00 | NUR ---
DR. DANIEL IN TO SEE PT. DISCUSSED PLAN OF CARE WITH HIM.
[2019-09-24 12:05] VITALS: BP 147/94
[2019-09-24 12:57] LABS: INR 2.11 (0.85-1.15); PROTHROMBIN TIME 21.5 SEC (9.6-11.6)
[2019-09-24] MEDS ORDERED: CLINIMIX E 5%-15% 2,000 ML IV SCH (13:45)
[2019-09-24] MEDS: ONDANSETRON HCL 4 MG/2 ML VIAL IV PRN (14:40)
[2019-09-24 16:00] VITALS: BP 156/93
--- NOTE | 2019-09-24 18:00 | NUR ---
SCHEDULED FOR PTC IN AM. CONSENT HAS BEEN SIGNED. AM NURSE TO CALL DR. DANIEL AT 9AM AND LET HIM KNOW WHICH IS COVERING IR
[2019-09-24] MEDS ORDERED: LIDOCAINE HCL-MPF 1% 2ML VIAL IV PRN (19:15)
[2019-09-24] MEDS ORDERED: POTASSIUM CHLORIDE 20MEQ/100ML 100 ML IV PRN (19:15)
[2019-09-24 19:59] VITALS: BP 157/93
[2019-09-24 20:30] LABS: INR 2.03 (0.85-1.15); PROTHROMBIN TIME 20.7 SEC (9.6-11.6)
--- NOTE | 2019-09-24 22:00 | NUR ---
STARTED UNIT OF FRESH FROZEN PLASMA. PATIENT GOT AN ALLERGIC REACTION AT 23:20. PATIENT ASSESSED AND HAS URTICARIA RASH ON BACK TORSO AND SOME MARBLE SIZED PAPULES ON UMBILICUS, EARS, CHEEKBONES, BACK. Nurse practitioner Sav Ortiz notified and came to assess patient. He ordered cbc, cmp, lipase, pt, and ptt lab drawn stat as well as benadryl 25 mg PO for rash and allergic reaction. remaining 50 ml of fresh frozen plasma sent to blood back with tubing and sodium chloride bag. pending to send urine to laboratory. will continue to observe the patient/
[2019-09-24] MEDS ORDERED: DIPHENHYDRAMINE HCL 25 MG CAPSULE PO PRN (23:45)
[2019-09-24] MEDS ORDERED: DIPHENHYDRAMINE HCL 25 MG CAPSULE ONE (23:49)
[2019-09-25] VITALS (7 sets, daily range): BP systolic 152–167; BP diastolic 81–98
[2019-09-25] MEDS: DIPHENHYDRAMINE HCL 25 MG CAPSULE PO SCH ×2 (00:22→23:45)
--- NOTE | 2019-09-25 00:30 | NUR ---
fresh frozen plasma started on 09/24/19 at 22:00 and vital signs are 150/93 blood pressure, pulse 68, respirations 18, temperature 98 pretransfusion vitals at 21:55. Uriticaria and itching allergic reaction at 23:20 and plasma stopped. Vitals at 23:30 and TELE TECH Sav Ortiz present in the room bp: 161/90, respirations 20, temperature 98.1, heart rate 63. One hour after reaction vitals are temperature of 98, blood pressure of 147/96, heart rate of 68, oxygen saturation of 99 room air, respirations 18. TELE TECH present in the room and aware.
[2019-09-25 01:20] LABS: INR 1.76 (0.85-1.15); PARTIAL THROMBOPLASTIN TIME 35.7 SEC (26.3-35.5); PROTHROMBIN TIME 18.1 SEC (9.6-11.6)
[2019-09-25 01:24] LABS: CREATININE 0.8 mg/dL (0.5-1.5); POTASSIUM 3.9 mmol/L (3.5-5.1)
[2019-09-25 01:26] LABS: BASOPHILS % (AUTO) 0.4 % (0.0-5.0); LYMPHOCYTES % (AUTO) 12.2 % (21.0-51.0); MEAN CORPUSCULAR HGB CONC 33.6 g/dL (32.0-36.0); MEAN CORPUSCULAR VOLUME 86.3 fL (79-99); MONOCYTES % (AUTO) 12.2 % (3.0-13.0); PLATELET COUNT (AUTO) 174 K/uL (130-400); RED BLOOD CELL COUNT(AUTO) 4.52 MIL/uL (4.50-6.20); RED CELL DISTRIBUTION WIDTH 12.3 % (11.0-15.5); WHITE BLOOD COUNT (AUTO) 4.9 K/uL (4.8-10.8)
[2019-09-25] MEDS: MORPHINE SULFATE 4 MG/1ML SYG IV PRN ×3 (03:38→16:14)
[2019-09-25] MEDS: LACTATED RINGERS 1000ML 1,000 ML IV SCH ×4 (04:28→16:15)
[2019-09-25] MEDS: ZOSYN 3.375GM+NS 50ML 50 ML IV SCH ×4 (04:35→20:48)
[2019-09-25] MEDS: METRONIDAZOLE 500MG/100ML BAG 100 ML IV SCH ×4 (04:35→20:48)
[2019-09-25 05:59] LABS: INR 1.76 (0.85-1.15); PROTHROMBIN TIME 18.1 SEC (9.6-11.6)
--- NOTE | 2019-09-25 08:07 | NUR ---
paged Dr. Armen New to office phone and pager 5 times. Pending call back.
--- NOTE | 2019-09-25 08:20 | NUR ---
DR. MARÍA PRINCE was notified that [facility] Management was unable to do procedure S/T INR needs to be below 1.5 and it is 1.76 Stated that from a GI standpoint patient needs the procedure and that it is now up to attending physician to determine when procedure can be done. No further orders from .
[2019-09-25] MEDS: ENOXAPARIN SODIUM 40 MG/0.4 ML SYRINGE SQ SCH (09:00)
[2019-09-25] MEDS: FAMOTIDINE/PF 20 MG/2 ML VIAL IV SCH ×3 (09:31→20:48)
--- NOTE | 2019-09-25 10:02 | NUR ---
CALL TO ATTENDING Paged attending digital operations analyst to notifiy him/her of INR and that Be[facility] Worker Helper unable to do procedure and of Dr. Ayers's directions. Pending for MD to call back. Family was updated earlier.
--- NOTE | 2019-09-25 10:11 | NUR ---
MAGALIS ALVARADO Nurse Practitioner was updated on issues about placement of drain and stated she will notify MD. Patient and family updated.
[2019-09-25 12:08] LABS: INR 1.83 (0.85-1.15); PARTIAL THROMBOPLASTIN TIME 35.6 SEC (26.3-35.5); PROTHROMBIN TIME 18.8 SEC (9.6-11.6)
[2019-09-25] MEDS ORDERED: DEXAMETHASONE 10MG/ML 1ML VIAL 0 MG in SODIUM CHLORIDE 0.9% 50 ML IV SCH (12:45)
[2019-09-25] MEDS: PHARMACY COMMUNICATION MISC SCH ×3 (13:00→20:49)
[2019-09-25] MEDS ORDERED: DiphenhydrAMINE HCL 50 MG/ML VIAL IV SCH (13:50)
--- NOTE | 2019-09-25 15:02 | NUR ---
NURSING NOTE Received orders from Dr Parks to transfuse FFP but Dr. Varela, Interventional Radiologist, stated to hold until results of ultrasound that he ordered. At this time, Alia from [employer] called stating no procedure will be done and that Dr. Bocanegra has talked to Dr. Ayers about this case. Family and Joselyn Granda updated.
--- NOTE | 2019-09-25 15:58 | NUR ---
UPDATE Spoke with Flavia Granda, BATCH UNLOADER inperson. Stated she will call herself with Dr. Ayers to check with him what the next step or recommendation is for the patient. She is aware no PTC drain will be done. She will also get in touch with attending to see whether patient will be put to eat. Patient and updated.
--- NOTE | 2019-09-25 16:17 | NUR ---
LACTATED RINGER's SOLUTION New bag of 500mL of LR started due to no 1000mL-bags available.
--- NOTE | 2019-09-25 17:04 | NUR ---
DR. DANIEL Spoke to Dr. Daniel over the telephone as directed to do by Flavia Granda to ask what any other recommendations he has from a GI prespective. . Dr. Daniel stated that there his recommendation is a PTC drain and that a different Interventional Radiologist can be consulted tomorrow.
--- NOTE | 2019-09-25 18:23 | NUR ---
ONCOLOGIST Dr. Parks came and did his rounds. Patient and doctor talked about case. Dr. Parks aware no FFPs were administered and stated "OK". He will call Flavia Granda to further discuss case.
[2019-09-25] MEDS ORDERED: MORPHINE SULFATE 4 MG/1ML SYG IV ONE (22:30)
[2019-09-25] MEDS ORDERED: MORPHINE SULFATE 4 MG/1ML SYG ONE (22:34)
[2019-09-25] MEDS: SODIUM CHLORIDE 0.9% 1000ML 1,000 ML IV SCH (22:37)
[2019-09-26] MEDS: PHARMACY COMMUNICATION MISC SCH ×7 (00:25→23:14)
[2019-09-26 03:24] VITALS: BP 152/96
[2019-09-26] MEDS: MORPHINE SULFATE 4 MG/1ML SYG IV PRN ×4 (03:26→21:33)
[2019-09-26] MEDS: SODIUM CHLORIDE 0.9% 1000ML 1,000 ML IV SCH ×5 (03:27→21:32)
[2019-09-26 05:09] LABS: BASOPHILS % (AUTO) 0.5 % (0.0-5.0); EOSINOPHILS % (AUTO) 2.7 % (0.0-8.0); HEMATOCRIT 40.1 % (42-54); LYMPHOCYTES % (AUTO) 10.4 % (21.0-51.0); MEAN CORPUSCULAR HEMOGLOBIN 28.8 pg (27.0-33.0); MEAN CORPUSCULAR HGB CONC 33.2 g/dL (32.0-36.0); MEAN CORPUSCULAR VOLUME 86.8 fL (79-99); MONOCYTES % (AUTO) 10.8 % (3.0-13.0); NEUTROPHILS % (AUTO) 75.1 % (40.0-77.0); PLATELET COUNT (AUTO) 167 K/uL (130-400); RED BLOOD CELL COUNT(AUTO) 4.62 MIL/uL (4.50-6.20); RED CELL DISTRIBUTION WIDTH 12.6 % (11.0-15.5); WHITE BLOOD COUNT (AUTO) 4.4 K/uL (4.8-10.8)
[2019-09-26 05:19] LABS: INR 1.9 (0.85-1.15); PROTHROMBIN TIME 19.5 SEC (9.6-11.6)
[2019-09-26] MEDS: METRONIDAZOLE 500MG/100ML BAG 100 ML IV SCH ×3 (05:42→21:32)
[2019-09-26] MEDS: ZOSYN 3.375GM+NS 50ML 50 ML IV SCH ×2 (05:42→23:13)
[2019-09-26 05:49] LABS: CREATININE 0.7 mg/dL (0.5-1.5); POTASSIUM 3.6 mmol/L (3.5-5.1)
[2019-09-26 08:00] VITALS: BP 154/89
[2019-09-26 08:52] LABS: BILIRUBIN,DIRECT 1.3 mg/dL (0.0-0.3); BILIRUBIN,TOTAL 1.5 mg/dL (0.2-1.0)
[2019-09-26] MEDS: ENOXAPARIN SODIUM 40 MG/0.4 ML SYRINGE SQ SCH (09:00)
[2019-09-26] MEDS: FAMOTIDINE/PF 20 MG/2 ML VIAL IV SCH (09:43)
[2019-09-26 12:00] VITALS: BP 146/94
--- NOTE | 2019-09-26 14:03 | NUR ---
1030 transfer request for higher level of care to [facility] 1140 chart reviewed and consent obtained. [address] [facility] transfer center [phone] information provided and information fax to [phone] will call back. [id number] Janes from transfer center call back state doctor to doctor spoke and Dr Gelacio Gutierrez accepted pending a bed. Hospital is on diversion at this time and its looking like it might be Monday or Monday. Met with pt and spouse inform them of transfer process and inform them of the above verbalized understanding. Delmer mxi
--- NOTE | 2019-09-26 14:56 | NUR ---
CLARIFIED PLAN OF CARE Spoke to Dr. Bennett. Stated he talked to Dr. Parks and that Dr. Parks will talk to IR doctor to see about placing PTC drain and Dr. Parks will inform Dr. Bennett. Patient has been updated by these two MDs, who rounded together on this patient and informed him.
[2019-09-26 15:14] VITALS: BP 166/98
[2019-09-26 19:35] VITALS: BP 157/95
[2019-09-26] MEDS: DIPHENHYDRAMINE HCL 25 MG CAPSULE PO SCH (23:13)
[2019-09-26 23:23] VITALS: BP 149/99
[2019-09-27 03:42] VITALS: BP 146/93
[2019-09-27] MEDS: PHARMACY COMMUNICATION MISC SCH ×6 (05:00→23:07)
[2019-09-27] MEDS: SODIUM CHLORIDE 0.9% 1000ML 1,000 ML IV SCH ×5 (05:13→21:14)
[2019-09-27] MEDS: METRONIDAZOLE 500MG/100ML BAG 100 ML IV SCH ×3 (05:17→21:04)
[2019-09-27 06:02] LABS: ALBUMIN 3.2 g/dL (3.5-5.0); BILIRUBIN,DIRECT 7.1 mg/dL (0.0-0.3); BILIRUBIN,TOTAL 9.1 mg/dL (0.2-1.0); CREATININE 0.8 mg/dL (0.5-1.5); POTASSIUM 3.6 mmol/L (3.5-5.1); TOTAL PROTEIN, SERUM 6.3 g/dL (6.0-8.3)
[2019-09-27] MEDS: MORPHINE SULFATE 4 MG/1ML SYG IV PRN ×4 (06:25→22:11)
[2019-09-27] MEDS: ZOSYN 3.375GM+NS 50ML 50 ML IV SCH ×3 (07:17→23:59)
[2019-09-27 07:54] VITALS: BP 140/98
[2019-09-27] MEDS: ENOXAPARIN SODIUM 40 MG/0.4 ML SYRINGE SQ SCH (09:00)
[2019-09-27] MEDS: FAMOTIDINE/PF 20 MG/2 ML VIAL IV SCH ×2 (11:04→21:04)
--- NOTE | 2019-09-27 11:35 | NUR ---
RD FOLLOW UP Spoke to pt this am and he stated he did not want to do any procedures at this time and would wait until transfer to [facility]. Pt is hungry and would like po intake. RD discussed clear liquids as tolerated. Add Ensure Clear TID to diet order. RD will continue to monitor and follow up. Thank you. Addendum: 09/27/19 at [address] Amended: Links added.
[2019-09-27 11:45] VITALS: BP 155/93
[2019-09-27 15:46] VITALS: BP 157/98
[2019-09-27 19:54] VITALS: BP 151/90
[2019-09-27] MEDS: DIPHENHYDRAMINE HCL 25 MG CAPSULE PO SCH (23:07)
[2019-09-27 23:31] VITALS: BP 155/88
[2019-09-28] MEDS: SODIUM CHLORIDE 0.9% 1000ML 1,000 ML IV SCH ×5 (03:23→23:50)
[2019-09-28] MEDS: MORPHINE SULFATE 4 MG/1ML SYG IV PRN ×5 (03:35→22:43)
[2019-09-28 03:36] VITALS: BP 157/93
[2019-09-28] MEDS: PHARMACY COMMUNICATION MISC SCH ×6 (04:41→23:51)
[2019-09-28] MEDS: METRONIDAZOLE 500MG/100ML BAG 100 ML IV SCH ×3 (05:15→20:57)
[2019-09-28 05:27] LABS: BASOPHILS % (AUTO) 0.4 % (0.0-5.0); EOSINOPHILS % (AUTO) 2.5 % (0.0-8.0); HEMATOCRIT 39.6 % (42-54); LYMPHOCYTES % (AUTO) 8.5 % (21.0-51.0); MEAN CORPUSCULAR HEMOGLOBIN 28.8 pg (27.0-33.0); MEAN CORPUSCULAR HGB CONC 33.8 g/dL (32.0-36.0); MEAN CORPUSCULAR VOLUME 85.2 fL (79-99); MONOCYTES % (AUTO) 12.5 % (3.0-13.0); NEUTROPHILS % (AUTO) 75.9 % (40.0-77.0); PLATELET COUNT (AUTO) 168 K/uL (130-400); RED BLOOD CELL COUNT(AUTO) 4.65 MIL/uL (4.50-6.20); RED CELL DISTRIBUTION WIDTH 12.8 % (11.0-15.5); WHITE BLOOD COUNT (AUTO) 4.8 K/uL (4.8-10.8)
[2019-09-28 05:47] LABS: CREATININE 0.8 mg/dL (0.5-1.5); POTASSIUM 3.3 mmol/L (3.5-5.1)
[2019-09-28] MEDS ORDERED: POTASSIUM CHLORIDE 10% ELIXIR 20 MEQ/15 ML UDCUP PO PRN (06:00)
[2019-09-28] MEDS ORDERED: POTASSIUM CHLORIDE 20 MEQ ERTAB PO ONE (06:06)
[2019-09-28 07:56] VITALS: BP 156/92
[2019-09-28] MEDS: FAMOTIDINE/PF 20 MG/2 ML VIAL IV SCH ×2 (08:13→20:15)
[2019-09-28] MEDS: ENOXAPARIN SODIUM 40 MG/0.4 ML SYRINGE SQ SCH ×2 (08:16→09:00)
[2019-09-28] MEDS: ZOSYN 3.375GM+NS 50ML 50 ML IV SCH ×3 (08:16→23:18)
[2019-09-28 09:39] LABS: ALBUMIN 3.3 g/dL (3.5-5.0); BILIRUBIN,DIRECT 7.6 mg/dL (0.0-0.3); BILIRUBIN,TOTAL 10.1 mg/dL (0.2-1.0); TOTAL PROTEIN, SERUM 6.4 g/dL (6.0-8.3)
[2019-09-28 11:19] VITALS: BP 153/94
[2019-09-28] MEDS: POTASSIUM CHLORIDE 20 MEQ ERTAB PO PRN ×2 (13:29→16:10)
[2019-09-28 16:00] VITALS: BP 153/90
[2019-09-28 20:00] VITALS: BP 153/86
[2019-09-28] MEDS: DIPHENHYDRAMINE HCL 25 MG CAPSULE PO SCH (21:09)
[2019-09-28] MEDS ORDERED: MAGNESIUM CITRATE 296 ML SOLUTION PO ONE (21:20)
[2019-09-28 23:44] VITALS: BP 154/92
[2019-09-29 03:21] VITALS: BP 150/84
[2019-09-29] MEDS: MORPHINE SULFATE 4 MG/1ML SYG IV PRN ×5 (04:08→22:45)
[2019-09-29 04:54] LABS: BASOPHILS % (AUTO) 0.4 % (0.0-5.0); EOSINOPHILS % (AUTO) 2.8 % (0.0-8.0); HEMATOCRIT 39.2 % (42-54); LYMPHOCYTES % (AUTO) 9.6 % (21.0-51.0); MEAN CORPUSCULAR HEMOGLOBIN 28.5 pg (27.0-33.0); MEAN CORPUSCULAR HGB CONC 33.2 g/dL (32.0-36.0); MONOCYTES % (AUTO) 11.4 % (3.0-13.0); NEUTROPHILS % (AUTO) 75.4 % (40.0-77.0); PLATELET COUNT (AUTO) 185 K/uL (130-400); RED BLOOD CELL COUNT(AUTO) 4.56 MIL/uL (4.50-6.20); WHITE BLOOD COUNT (AUTO) 4.9 K/uL (4.8-10.8)
[2019-09-29 05:11] LABS: ALBUMIN 3.1 g/dL (3.5-5.0); BILIRUBIN,TOTAL 10.9 mg/dL (0.2-1.0); CREATININE 0.7 mg/dL (0.5-1.5); MAGNESIUM 1.9 mg/dL (1.80-2.40); POTASSIUM 3.3 mmol/L (3.5-5.1); TOTAL PROTEIN, SERUM 6.2 g/dL (6.0-8.3)
[2019-09-29] MEDS: METRONIDAZOLE 500MG/100ML BAG 100 ML IV SCH ×3 (05:29→21:37)
[2019-09-29 07:50] VITALS: BP 156/100
[2019-09-29] MEDS: ZOSYN 3.375GM+NS 50ML 50 ML IV SCH ×3 (08:05→23:28)
[2019-09-29] MEDS: FAMOTIDINE/PF 20 MG/2 ML VIAL IV SCH ×2 (08:05→20:49)
[2019-09-29] MEDS: POTASSIUM CHLORIDE 20 MEQ ERTAB PO PRN ×3 (08:05→15:44)
[2019-09-29] MEDS: SODIUM CHLORIDE 0.9% 1000ML 1,000 ML IV SCH ×3 (08:13→20:08)
[2019-09-29 08:43] LABS: INR 2.21 (0.85-1.15); PROTHROMBIN TIME 22.5 SEC (9.6-11.6)
[2019-09-29] MEDS: PHARMACY COMMUNICATION MISC SCH ×4 (09:00→20:47)
[2019-09-29] MEDS: ENOXAPARIN SODIUM 40 MG/0.4 ML SYRINGE SQ SCH (09:00)
[2019-09-29 11:05] VITALS: BP 152/92
[2019-09-29 15:45] VITALS: BP 145/99
[2019-09-29] MEDS: ONDANSETRON HCL 4 MG/2 ML VIAL IV PRN ×2 (18:42→23:28)
[2019-09-29 19:00] VITALS: BP 165/95
[2019-09-29] MEDS: DIPHENHYDRAMINE HCL 25 MG CAPSULE PO SCH (23:31)
[2019-09-30 00:10] VITALS: BP 156/96
[2019-09-30] MEDS: MORPHINE SULFATE 4 MG/1ML SYG IV PRN ×2 (03:35→07:21)
[2019-09-30] MEDS: SODIUM CHLORIDE 0.9% 1000ML 1,000 ML IV SCH (04:01)
[2019-09-30 04:13] VITALS: BP 156/93
[2019-09-30] MEDS: METRONIDAZOLE 500MG/100ML BAG 100 ML IV SCH (05:24)
== END 2019-09-30 07:30 | disposition short-term general hospital (02) | DRG 438 ==
LOC: EDH 16:20 → EDHIP 20:30 → 3AH 21:22
PROVIDERS: ADMIT Family Medicine; ATTEND Family Medicine
PROC: 30233K1 Transfusion of Nonautologous Frozen Plasma into Peripheral Vein, Percutaneous Approach (ICD-10-PCS; principal; 2019-09-18)
DX: K85.90 Acute pancreatitis without necrosis or infection, unspecified (principal); K83.1 Obstruction of bile duct; R18.8 Other ascites; K86.1 Other chronic pancreatitis; K82.8 Other specified diseases of gallbladder; D64.9 Anemia, unspecified; K59.00 Constipation, unspecified; Z87.891 Personal history of nicotine dependence; Z92.21 Personal history of antineoplastic chemotherapy; Z92.3 Personal history of irradiation; Z85.028 Personal history of other malignant neoplasm of stomach; Z90.3 Acquired absence of stomach [part of]; Z83.3 Family history of diabetes mellitus; Z80.9 Family history of malignant neoplasm, unspecified
CPT/HCPCS: 36415; 71260; 74177; 74181; 74183; 76700; 76705; 80048; 80053; 80076; 82150; 82247; 82248; 82378; 83615; 83690; 83735; 84100; 85025; 85027; 85610; 85730; 86078; 86316; 86850; 86900; 86901; 86927; 93005; A9579; G0378; J1650; J2270; J2405; J2543; J3490; J7030; J7120; P9017; Q0163; Q9967